=== PATIENT | female | born 1990 ===

== ENCOUNTER 2018-04-23 07:53 | Emergency (ER) | payer OTHER ==
[2018-04-23 08:04] VITALS: O2SAT 99
[2018-04-23] MEDS ORDERED: Sodium Chloride 0.9% 1,000 ML IV STA (08:34)
[2018-04-23 09:09] LABS: BASO % 0.1 % (0.0-2.0); HEMOGLOBIN 11.4 g/dL (11.0-16.0); LYMPH # 0.8 K/uL (1.0-4.3); LYMPH % 22.6 % (20.0-40.0); MEAN CELL VOLUME 82.7 fL (81.0-99.0); MEAN CORPUSCULAR HEMOGLOBIN 28.7 pg (27.0-31.0); MEAN CORPUSCULAR HGB CONC 34.7 g/dL (33.0-37.0); MEAN PLATELET VOLUME 7.5 fL (7.2-11.7); MONO # 0.2 K/uL (0.0-0.8); MONO % 6.6 % (0.0-10.0); NEUT # 2.6 K/uL (1.8-7.0); NEUT % 70.7 % (50.0-75.0); NRBC % 0.1 % (0.0-2.0); RBC 3.99 Mil/uL (3.80-5.20); RED CELL DISTRIBUTION WIDTH 12.5 % (11.5-14.5); WHITE BLOOD COUNT 3.6 K/uL (4.8-10.8)
[2018-04-23 09:11] LABS: HCG,QUALITATIVE URINE NEGATIVE (NEGATIVE)
[2018-04-23 09:18] LABS: SQUAMOUS EPITHIAL 39 /hpf (0-5); URINE BACTERIA OCC (<OCC); URINE BILIRUBIN NEGATIVE (NEGATIVE); URINE BLOOD NEGATIVE (NEGATIVE); URINE CLARITY Hazy (Clear); URINE COLOR Amber (YELLOW); URINE GLUCOSE (UA) NORMAL (Normal); URINE LEUKOCYTE ESTERASE TRACE Leu/uL (Negative); URINE PROTEIN 2+ mg/dL (NEGATIVE)
[2018-04-23 09:34] LABS: ALB/GLOB RATIO 1.1 (1.0-2.1); ALBUMIN 4.3 g/dL (3.5-5.0); ALT/SGPT 14 U/L (9-52); AST/SGOT 30 U/L (14-36); BLOOD UREA NITROGEN 8 mg/dL (7-17); CALCIUM 8.7 mg/dl (8.6-10.4); GFR NON-AFRICAN AMERICAN > 60
[2018-04-23] MEDS ORDERED: Iodixanol 320 MG/ML 100 ML BOTTLE IV ONE (10:57)
--- NOTE | 2018-04-23 11:02 | C.PDOC ---
History Of Present Illness 28 y/o female presents to ED with c/o swelling to right side of neck associated with fever for 1 week. Patient denies chills, neck stiffness, headache, nausea, vomiting, chest pain, cough, congestion, sore throat or any other complaints at this time. Time Seen by Provider: 04/23/18 08:15 Chief Complaint (Nursing): ENT Problem History Per: Patient History/Exam Limitations: no limitations Onset/Duration Of Symptoms: Days Current Symptoms Are (Timing): Still Present Past Medical History Reviewed: Historical Data, Nursing Documentation, Vital Signs Vital Signs: Last Vital Signs Temp 100.4 F H 04/23/18 08:01 Pulse 123 H 04/23/18 08:01 Resp 20 04/23/18 08:01 BP 103/67 04/23/18 08:01 Pulse Ox 99 04/23/18 08:01 - Medical History PMH: No Chronic Diseases Surgical History: No Surg Hx Family History: States: No Known Family Hx - Social History Hx Alcohol Use: Yes Hx Substance Use: No - Immunization History Hx Tetanus Toxoid Vaccination: No Hx Influenza Vaccination: Yes (2017) Hx Pneumococcal Vaccination: No Review Of Systems Constitutional: Positive for: Fever. Negative for: Chills ENT: Negative for: Nose Congestion, Throat Pain Cardiovascular: Negative for: Chest Pain Respiratory: Negative for: Cough, Shortness of Breath Musculoskeletal: Positive for: Neck Pain Skin: Negative for: Rash Physical Exam - Physical Exam Appears: Non-toxic, No Acute Distress Skin: Warm, Dry, No Rash Head: Atraumatic, Normacephalic Eye(s): bilateral: Normal Inspection Oral Mucosa: Moist Throat: Normal, No Erythema, No Exudate Neck: Normal ROM, Supple, Other (minimal swelling to right side of neck, tenderness to right side of neck) Chest: Symmetrical Cardiovascular: Rhythm Regular Respiratory: Normal Breath Sounds, No Rales, No Rhonchi, No Wheezing Neurological/Psych: Oriented x3, Normal Speech ED Course And Treatment - Laboratory Results Result Diagrams: 04/23/18 08:51 04/23/18 08:51 O2 Sat by Pulse Oximetry: 99 (RA) Pulse Ox Interpretation: Normal - CT Scan/US CT neck soft tissue Other Rad Studies (CT/US): Read By Radiologist, Radiology Report Reviewed CT/US Interpretation: PROCEDURE: CT NECK WITH CONTRAST. HISTORY: fever, right neck swelling, no pharyngeal erythema. COMPARISON: None available. TECHNIQUE: CT of the neck with intravenous contrast. Coronal and sagittal reformats generated. Intravenous contrast dose: 100 mL Visipaque 320. Radiation dose: Total exam DLP = 275.83 mGy-cm. This CT exam was performed using one or more of the following dose reduction techniques: Automated exposure control, adjustment of the mA and/or kV according to patient size, and/or use of iterative reconstruction technique. FINDINGS: NASOPHARYNX: No mass or abnormal enhancement. SUPRAHYOID NECK: No mass or abnormal enhancement oropharynx, oral cavity, parapharyngeal space and retropharyngeal space. INFRAHYOID NECK: No mass or abnormal enhancement larynx, hypopharynx, and supraglottic space. Vocal cords intact. MASS: None. GLANDS: Parotid and submandibular glands unremarkable. Normal size thyroid gland, without nodule. LYMPH NODES: There are markedly enlarged right anterior and posterior cervical chain lymph nodes, the largest jugular chain lymph node measures 1.6 cm in transverse diameter. No evidence of pathologic left cervical chain lymphadenopathy. CERVICAL SPINE: No fracture or focal lesion. VASCULAR STRUCTURES: There is normal intravascular enhancement. OTHER FINDINGS: There is mild right lateral neck soft tissue swelling and subcutaneous inflammatory fat stranding. IMPRESSION: Markedly enlarged right anterior and posterior cervical chain lymph nodes, the largest measures 1.6 cm in transverse diameter. The differential considerations include infectious, inflammatory and neoplastic etiology. Clinical correlation and follow-up is advised. Progress Note: CT neck soft tissue, labs ordered. Disposition - Disposition Referrals: Woo Franz MD [Staff Provider] - Disposition: HOME/ ROUTINE Disposition Time: 13:20 Condition: STABLE Additional Instructions: Follow up with PMD and ENT specialist within 1-2 days. Return to ED if feel worse. Prescriptions: Cephalexin [Keflex] 500 mg PO Q6 #28 cap Ibuprofen [Motrin Tab] 600 mg PO Q8 #30 tab Instructions: Cephalexin Forms: [employer] ([place]) - Clinical Impression Clinical Impression: Lymphadenitis - PA / PACU NURSE / Resident Statement MD/DO has reviewed & agrees with the documentation as recorded. - Scribe Statement The provider has reviewed the documentation as recorded by the Nahomiibottoniel Ferguson All medical record entries made by the Nahomiibottoniel were at my direction and personally dictated by me. I have reviewed the chart and agree that the record accurately reflects my personal performance of the history, physical exam, medical decision making, and the department course for this patient. I have also personally directed, reviewed, and agree with the discharge instructions and disposition.
--- NOTE | 2018-04-23 12:07 | CT ---
Date of service: 04/23/2018 PROCEDURE: CT NECK WITH CONTRAST HISTORY: fever, right neck swelling, no pharyngeal erythema COMPARISON: None available. TECHNIQUE: CT of the neck with intravenous contrast. Coronal and sagittal reformats generated. Intravenous contrast dose: 100 mL Visipaque 320 Radiation dose: Total exam DLP = 275.83 mGy-cm. This CT exam was performed using one or more of the following dose reduction techniques: Automated exposure control, adjustment of the mA and/or kV according to patient size, and/or use of iterative reconstruction technique. FINDINGS: NASOPHARYNX: No mass or abnormal enhancement. SUPRAHYOID NECK: No mass or abnormal enhancement oropharynx, oral cavity, parapharyngeal space and retropharyngeal space. INFRAHYOID NECK: No mass or abnormal enhancement larynx, hypopharynx, and supraglottic space. Vocal cords intact. MASS: None. GLANDS: Parotid and submandibular glands unremarkable. Normal size thyroid gland, without nodule. LYMPH NODES: There are markedly enlarged right anterior and posterior cervical chain lymph nodes, the largest jugular chain lymph node measures 1.6 cm in transverse diameter. No evidence of pathologic left cervical chain lymphadenopathy. CERVICAL SPINE: No fracture or focal lesion. VASCULAR STRUCTURES: There is normal intravascular enhancement. OTHER FINDINGS: There is mild right lateral neck soft tissue swelling and subcutaneous inflammatory fat stranding. IMPRESSION: Markedly enlarged right anterior and posterior cervical chain lymph nodes, the largest measures 1.6 cm in transverse diameter. The differential considerations include infectious, inflammatory and neoplastic etiology. Clinical correlation and follow-up is advised.
[2018-04-23 12:24] VITALS: BP 94/61; PULSE 99; RESP 18; TEMP 98.8
[2018-04-23] MEDS ORDERED: cefTRIAXone 1 gm 1 GM/100 ML BAG IVPB ONE (13:30)
== END 2018-04-23 14:07 | disposition home or self-care (01) ==
LOC: C.ER 07:53
DX: I88.9 Nonspecific lymphadenitis, unspecified (principal)
CPT/HCPCS: 70491; 80053; 81001; 84703; 85025; 96361; 96365; 99284; J0696; J7030; Q9967